=== PATIENT | female | born 1995 | race Caucasian/White ===

== ENCOUNTER 2017-06-22 10:01 | Emergency (ER) | payer OTHER, MEDICARE ==
[~2017-06-22] VITALS: Ht 162.6 cm; Wt 95.4 kg
[2017-06-22 10:16] VITALS: BP 141/98
--- NOTE | 2017-06-22 10:21 | NUR ---
Patient to bed 12.
--- NOTE | 2017-06-22 10:30 | NUR ---
22 F BIB FAMILY WITH C/O CONSTANT ABNORMAL VAGINAL BLEEDING X ONE MONTH WITH CLOTS TODAY; PT REPORTS VAG BLEEDING WORSE PAST WEEK; PT REPORTS 8/10 COSNTANT "CRAMPING" NON RADIATING BL LOWER ABD PAIN; PT DENIES ANY RECENT FEVERS OR N/V PT ALSO REPORTS DYSURIA; PT IS AOX4, RR ARE EVEN AND UNLABORED; ER MD AWARE OF PT STATUS. PT POSITIONED TO COMFORT, BED DOWN. NAD. AWAITNG ER MD RITTER.
[2017-06-22] MEDS ORDERED: KETOROLAC 60 MG/2 ML VIAL IM ONE (11:50)
[2017-06-22 12:16] VITALS: BP 109/80
--- NOTE | 2017-06-22 12:16 | NUR ---
Patient discharged with v/s stable. Written and verbal after care instructions given and explained. Patient alert, oriented and verbalized understanding of instructions. Ambulatory with steady gait. All questions addressed prior to discharge. ID band removed. Patient advised to follow up with PMD. Rx of Provera and Motrin given. Patient educated on indication of medication including possible reaction and side effects. Opportunity to ask questions provided and answered.
== END 2017-06-22 12:16 | disposition home or self-care (01) ==
LOC: MED 10:01
DX: N93.8 Other specified abnormal uterine and vaginal bleeding (principal)
CPT/HCPCS: 81002; 81025; 96372; 99283; J1885